=== PATIENT | male | born 2000 | race Caucasian/White ===

== ENCOUNTER 2018-07-22 00:32 | Inpatient (IN) ==
--- NOTE | 2018-07-22 01:09 | Emergency Department Note ---
Disposition Clinical Impression: Delusions Disposition: Admitted As Inpatient Condition: Good Referrals: Martha Turner MD [Primary Care Provider] - Forms: ED Satisfaction Letter General Adult HPI - General Chief complaint: ED Psychiatric Symptoms Stated complaint: psych eval Time Seen by Provider: 07/22/18 00:33 Source: patient, family Limitations: no limitations Nursing Notes Reviewed: Yes Vital Signs Reviewed: Yes - History of Present Illness HPI Narrative: 18 year old male presents to the ed per court order for pysch evaluation. Noemy is unaware of why he has been brought to the ED and is not SI/HI and is otherwise pleasant at bedside. PAtient is coopertaive and denies any history of pysch problems and otherise states his medical conditiosn include excercise i nduced asthma and ADHD. He is currently a college student at [employer] and is visiting his father in town. He states that the leveler helper picked him up and jairo him here for evlaution and is unaware as to why. After speaking with his father on the phone per permission of the paatient is appears that over the course of the past few months he has been expereincing incferased delusions of grandeur and "Thinks that he is GOD" and otherwise has special tee. Pain Scale: 0 - Related Data Previous Rx's Medication Instructions Recorded Albuterol Sulfate [Albuterol 1 puff IH Q4HR #1 hfa.aer.ad 01/29/16 Inhaler] Azithromycin [Zithromax] 250 mg PO DAILY #4 tablet 01/29/16 Allergies Allergy/AdvReac Type Severity Reaction Status Date / Time No Known Allergies Allergy Verified 01/29/16 20:13 Constitutional: Denies: fever, chills, weakness, weight change Eyes: Denies: eye pain, eye discharge, vision change ENT ED: Denies: ear pain, throat pain, dental pain, hearing loss, epistaxis, congestion, dysphagia Cardiovascular: Denies: chest pain, palpitations, dyspnea on exertion, edema, syncope Respiratory: Denies: cough, dyspnea, wheezes, hemoptysis, stridor Gastrointestinal: Denies: abdominal pain, nausea, vomiting, diarrhea, consti pation, hematemesis, melena, hematochezia Genitourinary: Denies: urgency, dysuria, frequency, hematuria Musculoskeletal: Denies: back pain, neck pain, arthralgia, myalgia Integumentary: Denies: rash, abrasion, lesions Neurological: Denies: headache, weakness, numbness, paresthesias, confusion, abnormal gait, vertigo Psychiatric: Denies: anxiety, depression, suicidal thoughts, homicidal thoughts, auditory hallucinations, visual hallucinations Endocrine: Denies: fatigue Hematological/Lymphatic: Denies: easy bleeding, easy bruising Allergic/Immunologic: Denies: facial swelling, urticaria Past Medical History - Past Medical History Medical history: Reports: asthma Psychiatric history: Reports: no psych history - Social History Smoking Status: Never smoker Smokeless Tobacco Status: No Alcohol use: Reports: none Drug use: Reports: none Physical Exam - General Limitations: no limitations General appearance: alert, in no apparent distress - Head Head exam: atraumatic, normocephalic, normal inspection - Eye Eye exam: Present: normal appearance, PERRL, EOMI - Expanded Eye Exam Pupils: Bilateral: reactive - ENT ENT exam: normal exam, normal oropharynx, mucous membranes moist - Expanded ENT Exam External ear exam: Present: normal external inspection Mouth exam: Present: normal external inspection Teeth exam: Present: normal inspection Throat exam: Present: normal inspection - Neck Neck exam: Present: normal inspection, full ROM, trachea midline - Chest Chest inspection: Present: normal inspection, symmetric chest wall rise - Respiratory Respiratory exam: Present: normal lung sounds bilaterally - Cardiovascular Cardiovascular exam: Present: regular rate, normal rhythm, normal heart sounds - Abdominal Exam Abdominal exam: Present: soft, Non-Tender. Absent: tenderness, distention, guarding, rebound, rigidity - Extremities Exam Extremities exam: Present: normal inspection, full ROM. Absent: tenderness, pedal edema - Expanded Upper Extremity Exam Shoulder exam: Present: normal inspection, full ROM Arm exam: Present: normal inspection, full ROM Elbow exam: Present: normal inspection, full ROM Forearm/Wrist exam: Present: normal inspection, full ROM Hand exam: Present: normal inspection, full ROM Vascular exam: Normal: capillary refill, radial pulse - Expanded Lower Extremity Exam Hip/Pelvis exam: Present: normal inspection, full ROM Upper leg exam: Present: normal inspection, full ROM Knee exam: Present: normal inspection, full ROM Lower leg exam: Present: normal inspection, full ROM Ankle exam: Present: normal inspection, full ROM Foot/toe exam: Present: normal inspection, full ROM Neurovascular/Tendon exam: Absent: motor deficit, sensory deficit, tendon deficit - Back Exam Back exam: Present: normal inspection, full ROM. Absent: tenderness - Neurological Exam Neurological exam: Present: alert, oriented X3 - Expanded Neurological Exam Patient oriented to: Present: person, place, time Speech: Present: fluid speech Cranial nerves: EOM function (II, III, IV, ): Normal, facial sensation (V): Normal, facial palsy (VII): Normal, gag reflex (IX): Normal, spinal accessory function (XI): Normal, tongue deviation (XII): Normal Cerebellar function: finger to nose: Normal Cerebellar function: normal gait Motor strength - LUE: 5/5 Motor strength - RUE: 5/5 Motor strength - LLE: 5/5 Motor strength - RLE: 5/5 Coma Scale Eye Opening: Spontaneous Coma Scale Motor Response: Obeys Commands Coma Scale Verbal Response: Oriented Coma Scale Total: 15 - Psychiatric Psychiatric exam: Present: normal affect, normal mood - Skin Skin exam: Present: warm, dry, intact, normal color Course Course Narrative: I will do a medical clearance and then consult 1A - Reevaluation(s) Reevaluation #1: medically cleared. 1A consulted Time: 02:25 - Consultations Consultation #1: 1A has decided to admit noemy to their facility. Time: 05:07 Vital Signs Temperature 97.9 F 07/22/18 00:58 Pulse Rate 56 07/22/18 00:58 Respiratory Rate 16 07/22/18 00:58 Blood Pressure 134/86 07/22/18 00:58 O2 Sat by Pulse Oximetry 97 07/22/18 00:58 Temperature 97.9 F 07/22/18 00:58 Pulse Rate 56 07/22/18 00:58 Respiratory Rate 16 07/22/18 00:58 Blood Pressure 134/86 07/22/18 00:58 O2 Sat by Pulse Oximetry 97 07/22/18 00:58 Oxygen Delivery Oxygen Delivery Room Air Medical Decision Making - Lab Data Result diagrams: 07/22/18 00:58 07/22/18 00:58 Lab Results 07/22/18 07/22/18 07/22/18 Range/Units 00:58 00:58 00:58 WBC 8.7 (4.3-11.1) K/mcL RBC 5.99 H (4.19-5.50) M/mcL Hgb 17.3 H (12.9-16.9) g/dL Hct 50.6 H (37.5-50.1) % MCV 84.5 (83.0-100.0) fL MCH 28.9 (28.0-33.3) pg MCHC 34.2 (31.6-35.5) g/dL RDW 13.2 (11.5-14.5) % Plt Count 180 (140-400) K/mcL MPV 12.4 (9.4-12.4) fL Immature Gran % 0.1 (0-4) % Seg Neutrophils % 58.5 % Lymphocytes % 33.2 % Monocytes % 6.8 % Eosinophils % 0.9 % Basophils % 0.5 % Neutrophils # 5.1 (1.6-8.9) K/mcL Lymphocytes # 2.9 (0.6-4.6) K/mcL Monocytes # 0.6 (0.0-1.3) K/mcL Eosinophils # 0.1 (0.0-0.6) K/mcL Basophils # 0.0 (0.0-0.2) K/mcL Sodium 142 (136-145) mEq/L Potassium 3.9 (3.5-5.1) mEq/L Chloride 106 (98-107) mEq/L Carbon Dioxide 25 (23-29) mEq/L BUN 9 (6-20) mg/dL Creatinine 0.70 (0.70-1.30) mg/dL Est GFR ( Amer) > 60 (> 60) Est GFR (Non-Af Amer) > 60 (> 60) BUN/Creatinine Ratio 13 (6-26) Glucose 89 (70-105) mg/dL Calculated Osmolality 292 (280-300) Calcium 9.6 (8.6-10.3) mg/dL TSH 0.993 (0.340-5.600) mcIU/mL Urine Color (Yellow) Urine Clarity (Clear) Urine pH (5.0-8.0) pH Units Ur Specific [place] (1.010-1.025) Urine Protein (Neg-Trace) mg/dL Urine Glucose (UA) (Normal) mg/dL Urine Ketones (Negative) mg/dL Urine Blood (Negative) Urine Nitrite (Negative) Urine Bilirubin (Negative) Urine Urobilinogen (Normal) mg/dL Ur Leukocyte Esterase (Negative) Urine Microscopic RBC (0-3) per hpf Urine Microscopic WBC (0-3) per hpf Ur Squamous Epith Cells (None-Few) per lpf Urine Bacteria (None-Few) per hpf Hyaline Casts (None-Few) per lpf Salicylates < 2.5 L (15.0-30.0) mg/dL Urine Opiates Screen (Fczgzm=214) ng/mL Acetaminophen < 10 L (10-20) mcg/mL Ur Barbiturates Screen (Yhlwhe=198) ng/mL Ur Phencyclidine Scrn (Cutoff=25) ng/mL Ur Amphetamines Screen (Iljceo=4104) ng/mL U Benzodiazepines Scrn (Wxclti=913) ng/mL Urine Cocaine Screen (Cutoff= 300) ng/mL U Marijuana (THC) Screen (Cutoff = 50) ng/mL Ur Drug Screen Interp Ethyl Alcohol < 10 (Less than 10) mg/dL 07/22/18 07/22/18 Range/Units 01:42 01:42 WBC (4.3-11.1) K/mcL RBC (4.19-5.50) M/mcL Hgb (12.9-16.9) g/dL Hct (37.5-50.1) % MCV (83.0-100.0) fL MCH (28.0-33.3) pg MCHC (31.6-35.5) g/dL RDW (11.5-14.5) % Plt Count (140-400) K/mcL MPV (9.4-12.4) fL Immature Gran % (0-4) % Seg Neutrophils % % Lymphocytes % % Monocytes % % Eosinophils % % Basophils % % Neutrophils # (1.6-8.9) K/mcL Lymphocytes # (0.6-4.6) K/mcL Monocytes # (0.0-1.3) K/mcL Eosinophils # (0.0-0.6) K/mcL Basophils # (0.0-0.2) K/mcL Sodium (136-145) mEq/L Potassium (3.5-5.1) mEq/L Chloride (98-107) mEq/L Carbon Dioxide (23-29) mEq/L BUN (6-20) mg/dL Creatinine (0.70-1.30) mg/dL Est GFR ( Amer) (> 60) Est GFR (Non-Af Amer) (> 60) BUN/Creatinine Ratio (6-26) Glucose (70-105) mg/dL Calculated Osmolality (280-300) Calcium (8.6-10.3) mg/dL TSH (0.340-5.600) mcIU/mL Urine Color Yellow (Yellow) Urine Clarity Clear (Clear) Urine pH 6.0 (5.0-8.0) pH Units Ur Specific [place] 1.026 H (1.010-1.025) Urine Protein 30 H (Neg-Trace) mg/dL Urine Glucose (UA) Normal (Normal) mg/dL Urine Ketones Trace H (Negative) mg/dL Urine Blood Negative (Negative) Urine Nitrite Negative (Negative) Urine Bilirubin Negative (Negative) Urine Urobilinogen Normal (Normal) mg/dL Ur Leukocyte Esterase Negative (Negative) Urine Microscopic RBC 5-15 H (0-3) per hpf Urine Microscopic WBC 0-3 (0-3) per hpf Ur Squamous Epith Cells Few (None-Few) per lpf Urine Bacteria None Seen (None-Few) per hpf Hyaline Casts None Seen (None-Few) per lpf Salicylates (15.0-30.0) mg/dL Urine Opiates Screen Negative (Lgekce=501) ng/mL Acetaminophen (10-20) mcg/mL Ur Barbiturates Screen Negative (Bjxpla=695) ng/mL Ur Phencyclidine Scrn Negative (Cutoff=25) ng/mL Ur Amphetamines Screen Negative (Hkhajb=8833) ng/mL U Benzodiazepines Scrn Negative (Cqilmj=728) ng/mL Urine Cocaine Screen Negative (Cutoff= 300) ng/mL U Marijuana (THC) Screen Positive H (Cutoff = 50) ng/mL Ur Drug Screen Interp See Below Ethyl Alcohol (Less than 10) mg/dL
[2018-07-22 01:43] LABS: Basophils % 0.5 %; Eosinophils # 0.1 K/mcL (0.0-0.6); Eosinophils % 0.9 %; Hematocrit 50.6 % (37.5-50.1); Hemoglobin 17.3 g/dL (12.9-16.9); Immature Granulocytes % 0.1 % (0-4); Lymphocytes # 2.9 K/mcL (0.6-4.6); Lymphocytes % 33.2 %; Mean Corpuscular HGB Conc 34.2 g/dL (31.6-35.5); Mean Corpuscular Hemoglobin 28.9 pg (28.0-33.3); Mean Corpuscular Volume 84.5 fL (83.0-100.0); Mean Platelet Volume 12.4 fL (9.4-12.4); Monocytes # 0.6 K/mcL (0.0-1.3); Monocytes % 6.8 %; Neutrophils # 5.1 K/mcL (1.6-8.9); Platelet Count 180 K/mcL (140-400); Red Blood Count 5.99 M/mcL (4.19-5.50); Red Cell Distribution Width 13.2 % (11.5-14.5); Segmented Neutrophils % 58.5 %
[2018-07-22 02:03] LABS: Acetaminophen < 10 mcg/mL (10-20); BUN/Creatinine Ratio 13 (6-26); Blood Urea Nitrogen 9 mg/dL (6-20); Calcium 9.6 mg/dL (8.6-10.3); Carbon Dioxide 25 mEq/L (23-29); Chloride 106 mEq/L (98-107); Ethanol < 10 mg/dL (Less than 10); Glucose 89 mg/dL (70-105); Osmolality,Calculated 292 (280-300); Potassium 3.9 mEq/L (3.5-5.1); Salicylate < 2.5 mg/dL (15.0-30.0); Sodium 142 mEq/L (136-145); eGFR For Non-African Americans > 60 (> 60)
[2018-07-22 02:21] LABS: Bilirubin,Urine Negative (Negative); Blood,Urine Negative (Negative); Clarity,Urine Clear (Clear); Color,Urine Yellow (Yellow); Glucose,Urine (UA) Normal (Normal); Ketones,Urine Trace mg/dL (Negative); Leukocyte Esterase,Urine Negative (Negative); Nitrite,Urine Negative (Negative); Protein,Urine 30 mg/dL (Neg-Trace); Specific Gravity,Urine 1.026 (1.010-1.025); Urobilinogen,Urine Normal (Normal)
[2018-07-22 02:22] LABS: Bacteria,Urine None Seen per hpf (None-Few); Hyaline Casts,Urine None Seen per lpf (None-Few); Squamous Epithelial Cell,Urine Few per lpf (None-Few); WBC,Urine 0-3 per hpf (0-3)
[2018-07-22 02:34] LABS: Amphetamine Screen,Urine Negative ng/mL (Cutoff=1000); Barbiturate Screen,Urine Negative ng/mL (Cutoff=200); Benzodiazepines Screen,Urine Negative ng/mL (Cutoff=200); Cannabinoid Screen,Urine Positive ng/mL (Cutoff = 50); Cocaine Screen,Urine Negative ng/mL (Cutoff= 300); Opiate Screen,Urine Negative ng/mL (Cutoff=300); Phencyclidine Screen,Urine Negative ng/mL (Cutoff=25)
[2018-07-22] MEDS ORDERED: *HR* LORazepam 1 MG TABLET PO PRN (05:17)
[2018-07-22] MEDS ORDERED: Mag Hydrox/Al Hydrox/Simeth 30 ML UDC PO PRN (05:17)
[2018-07-22] MEDS ORDERED: Haloperidol Lactate 5 MG/ML VIAL IM PRN (05:17)
[2018-07-22] MEDS ORDERED: *HR* LORazepam 2 MG/ML VIAL IM PRN (05:17)
[2018-07-22] MEDS ORDERED: Ibuprofen 400 MG TABLET PO PRN (05:17)
--- NOTE | 2018-07-22 10:30 | Psychiatry History & Physical ---
Date of Encounter: 07/22/18 Time of Encounter: 10:28 History of Present Illness Patient Stated Chief Complaint: sedated Medicare Admission Attestation: For traditional Medicare patients the provided hospital inpatient services are reasonable and necessary and in the case of services not specified as inpatient-only under 42 CFR 419.22 (n), that they are appropriately provided as inpatient services in accordance 42 CFR 412.3. For Critical Access Hospital the patient may reasonably be expected to be discharged or transferred to a hospital within 96 hours after admission to the Critical Access Hospital. Admitted From: Emergency Dept Plans for Post Hospital Care: Home History of Present Illness: 18 year old male presented to the ed per court order for pysch evaluation. Fam is unaware of why he has been brought to the ED and is not SI/HI and is otherwise pleasant at bedside. Patient is cooperative and denies any history of pysch problems and otherwise states his medical condition include exercise induced asthma and ADHD. He is currently a college student at [employer] and is visiting his father in town. He states that the heel washer stringing machine operator picked him up and borough him here for evaluation and is unaware as to why. After speaking with his father on the phone per permission of the patient is appears that over the course of the past few months he has been experiencing increased delusions of grandeur and "Thinks that he is GOD" and otherwise has special tee. He was very agitated when he was brought to the unit and required emergency medications. He was noted to have bizarre behaviors. He believed he had a Red sunglasses that he bought at [facility] that allowed him to tell the truth from lies. He also said that he saw a white light on the highway which told him that he is God. 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 He has been failing out of [employer]. Past Med Surg Social Fam HX - Past Medical History Medical history: asthma - Past Psychiatric History Past psychiatric history details: None per records. Unable to obtain from patient due to his sedation. There is no family contact information on record. Family psychiatric history: Unknown Family History of Suicide: Unknown - Past Surgical History Surgical History: tonsillectomy - Social History Smoking Status: Never smoker Smokeless Tobacco Status: No Alcohol use: none Drug use: none Occupational status: employed Current living situation: Home - Independent Activity Level: Independent ambulation Recent Out of Country Travel Within the Last 8 Weeks: No Exposure or Possible Exposure to Illness During Travel: No Additional social history: Unable to obtain due to his sedation. We know he had been working at 4:00 or and was a student at [employer]. Medications & Allergies No Known Home Drugs 07/22/18 [History] Allergy/AdvReac Type Severity Reaction Status Date / Time DECONGESTANTS Allergy See Uncoded 07/22/18 09:24 Comments Review of Systems ROS unobtainable: due to patient condition Psychiatric: Reports: auditory hallucinations, visual hallucinations, other (Psychosis) Exam - HEENT Head exam IM: Present: atraumatic Eye exam IM: Present: normal appearance ENT exam IM: Present: mucous membranes moist - Neurological Neurological exam: Present: CN II-XII intact (Grossly though exam is limited due to his sedation) - Respiratory Respiratory exam IM: Absent: respiratory distress - GI/Abdominal GI/Abdominal exam IM: Present: no peritoneal signs - Extremities Extremities exam IM: Absent: joint swelling - Skin Skin exam IM: Absent: cyanosis - Constitutional Vitals: Temp Pulse Resp BP Pulse Ox 97.9 F 56 16 134/86 97 07/22/18 00:58 07/22/18 00:58 07/22/18 00:58 07/22/18 00:58 07/22/18 00:58 General appearance: disheveled - Musculoskeletal Gait: other (In bed) Station: relaxed Strength & Tone: other (Unable to answer) - Psychiatric Patient Orientation: Yes Other (Unable to answer) Level of alertness: Sedated Behavior: uncooperative Psychomotor activity: Slowed Eye Contact: No Eye Contact Mood Description: Other Patient description of mood: No answer Affect description: other (Sedated) Speech Volume: No speech Speech pattern: other (Sedated) Language & Vocabulary: other (Sedated no language and vocabulary to observe) Thought Process: Loose Associations (Currently sedated however based on ER record was having loose associations and disorganization), Disorganized Thought Content: Yes Sabianist delusion, Yes Grandiose delusion Perceptual Disturbances: Yes Auditory hallucinations, Yes Visual hallucinations Attention Span Ability: Unable to Focus, Unable to Sustain Attention Memory Description: Immediate Impaired, Remote Intact, Remote Impaired Patient Reliability: Not Reliable Historian Fund of knowledge: Yes average Intelligence Estimate: Average Judgment: Poor Insight: None Results - Drug Levels and Toxicology Drug Levels and Toxicology: Drug Levels and Toxicity 07/22/18 07/22/18 00:58 01:42 Urine Opiates Screen Negative Acetaminophen < 10 L Ur Barbiturates Screen Negative Ur Phencyclidine Scrn Negative Ur Amphetamines Screen Negative U Benzodiazepines Scrn Negative Urine Cocaine Screen Negative U Marijuana (THC) Screen Positive H Ethyl Alcohol < 10 - Labs Labs: Laboratory Last Values WBC 8.7 K/mcL (4.3-11.1) 07/22/18 00:58 RBC 5.99 M/mcL (4.19-5.50) H 07/22/18 00:58 Hgb 17.3 g/dL (12.9-16.9) H 07/22/18 00:58 Hct 50.6 % (37.5-50.1) H 07/22/18 00:58 MCV 84.5 fL (83.0-100.0) 07/22/18 00:58 MCH 28.9 pg (28.0-33.3) 07/22/18 00:58 MCHC 34.2 g/dL (31.6-35.5) 07/22/18 00:58 RDW 13.2 % (11.5-14.5) 07/22/18 00:58 Plt Count 180 K/mcL (140-400) 07/22/18 00:58 MPV 12.4 fL (9.4-12.4) 07/22/18 00:58 Immature Gran % 0.1 % (0-4) 07/22/18 00:58 Seg Neutrophils % 58.5 % 07/22/18 00:58 33.2 % 07/22/18 00:58 6.8 % 07/22/18 00:58 0.9 % 07/22/18 00:58 0.5 % 07/22/18 00:58 5.1 K/mcL (1.6-8.9) 07/22/18 00:58 2.9 K/mcL (0.6-4.6) 07/22/18 00:58 0.6 K/mcL (0.0-1.3) 07/22/18 00:58 0.1 K/mcL (0.0-0.6) 07/22/18 00:58 0.0 K/mcL (0.0-0.2) 07/22/18 00:58 Sodium 142 mEq/L (136-145) 07/22/18 00:58 Potassium 3.9 mEq/L (3.5-5.1) 07/22/18 00:58 Chloride 106 mEq/L (98-107) 07/22/18 00:58 Carbon Dioxide 25 mEq/L (23-29) 07/22/18 00:58 BUN 9 mg/dL (6-20) 07/22/18 00:58 0.70 mg/dL (0.70-1.30) 07/22/18 00:58 Est GFR ( Amer) > 60 (> 60) 07/22/18 00:58 Est GFR (Non-Af Amer) > 60 (> 60) 07/22/18 00:58 13 (6-26) 07/22/18 00:58 Glucose 89 mg/dL (70-105) 07/22/18 00:58 292 (280-300) 07/22/18 00:58 Calcium 9.6 mg/dL (8.6-10.3) 07/22/18 00:58 TSH 0.993 mcIU/mL (0.340-5.600) 07/22/18 00:58 Yellow (Yellow) 07/22/18 01:42 Clear (Clear) 07/22/18 01:42 6.0 pH Units (5.0-8.0) 07/22/18 01:42 Ur Specific [place] 1.026 (1.010-1.025) H 07/22/18 01:42 30 mg/dL (Neg-Trace) H 07/22/18 01:42 Normal mg/dL (Normal) 07/22/18 01:42 Trace mg/dL (Negative) H 07/22/18 01:42 Negative (Negative) 07/22/18 01:42 Negative (Negative) 07/22/18 01:42 Negative (Negative) 07/22/18 01:42 Normal mg/dL (Normal) 07/22/18 01:42 Ur Leukocyte Esterase Negative (Negative) 07/22/18 01:42 5-15 per hpf (0-3) H 07/22/18 01:42 0-3 per hpf (0-3) 07/22/18 01:42 Ur Squamous Epith Cells Few per lpf (None-Few) 07/22/18 01:42 None Seen per hpf (None-Few) 07/22/18 01:42 Hyaline Casts None Seen per lpf (None-Few) 07/22/18 01:42 Salicylates < 2.5 mg/dL (15.0-30.0) L 07/22/18 00:58 Negative ng/mL (Ewnbyp=948) 07/22/18 01:42 Acetaminophen < 10 mcg/mL (10-20) L 07/22/18 00:58 Ur Barbiturates Screen Negative ng/mL (Ksifya=535) 07/22/18 01:42 Ur Phencyclidine Scrn Negative ng/mL (Cutoff=25) 07/22/18 01:42 Ur Amphetamines Screen Negative ng/mL (Xodrzr=8880) 07/22/18 01:42 U Benzodiazepines Scrn Negative ng/mL (Legkbg=188) 07/22/18 01:42 Negative ng/mL (Cutoff= 300) 07/22/18 01:42 U Marijuana (THC) Screen Positive ng/mL (Cutoff = 50) H 07/22/18 01:42 Ur Drug Screen Interp See Below 07/22/18 01:42 Ethyl Alcohol < 10 mg/dL (Less than 10) 07/22/18 00:58 - Impressions Impressions Head CT 07/22/18 00:45 IMPRESSION: No acute intracranial abnormality. D/ / Neel Vasquez / Neel Vasquez Interpreting Provider: Neel Vasquez Assessment and Plan (1) Unspecified psychosis Current visit: Yes Status: Acute Plan: Admit inpatient for safety and stabilization, Close observation, Suicide P recautions per unit protocol, Encourage participation in unit milieu, Group Therapy, Monitor sleep, Monitor appetite Additional Plan: This could be a first break psychotic episode. Could also be related to some drugs which do not show in his toxicology screen. Will start him on Risperdal for his psychosis. Start 1 mg twice a day. Encourage group attendance. Reviewed Interval hx Review any current labs Pt had an opportunity to ask questions and discuss current treatment plan. Supportive therapy was provided Pt encouraged to consider group or individual therapy Pt was in agreement with treatment plan. Pt was educated on the risks benefits and side effects of current medications and alternatives as well as the risks and benefits of no medication. AIMS = 0 lipids and hgba1c Risks, benefits, side effects, alternatives discussed w/pt: Yes Patient agreeable to treatment: Yes Plans for Post Hospital Care: Home Estimated Length of Stay (Days): 6 Qualifiers: Psychosis type: unspecified psychosis type Qualified Code(s): F29 - Unspecified psychosis not due to a substance or known physiological condition
[2018-07-22] MEDS: hydrOXYzine pamoate 25 MG CAPSULE PO PRN (21:40)
[2018-07-22] MEDS: traZODone 50 MG TABLET PO PRN (21:40)
[2018-07-22] MEDS: RisperiDONE-M 1 MG TAB.RAPDIS PO SCH (21:41)
[2018-07-23] MEDS: hydrOXYzine pamoate 25 MG CAPSULE PO PRN ×2 (06:30→21:29)
[2018-07-23] MEDS: RisperiDONE-M 1 MG TAB.RAPDIS PO SCH ×2 (08:26→21:30)
--- NOTE | 2018-07-23 10:50 | Psychiatry Progress Note ---
Date of Encounter: 07/23/18 Time of Encounter: 10:48 Subjective Interval history: Colors seem more sharp. He did not believe that they could let him see a transfer from [place]. He denies hearing voices or seeing things but does talk about sometimes things catching his I and making him want to spend more time looking at them. He reports that he had used some cannabis recently. Told nursing he is missing a trip to [place] to buy real estate. Review of Systems Psychiatric: Reports: other (Psychosis) Results - Vital Signs Vital Signs: Temp Pulse Resp BP Pulse Ox 97.9 F 124 18 116/84 96 07/23/18 09:00 07/23/18 09:00 07/23/18 09:00 07/23/18 09:00 07/23/18 09:00 - Impressions ITS Impressions Head CT 07/22/18 00:45 IMPRESSION: No acute intracranial abnormality. D/ / Neel Vasquez / Neel Vasquez Interpreting Provider: Neel Vasquez Assessment and Plan (1) Unspecified psychosis Current visit: Yes Status: Acute Plan: Continue hospitalization, Close observation, Suicide Precautions per unit protocol, Encourage participation in unit milieu, Group Therapy, Monitor sleep, Monitor appetite Additional Plan: Continue Risperdal. Encourage group attendance. Therapists working on discharge planning. Risks, benefits, side effects, alternatives discussed w/pt: Yes Patient agreeable to treatment: Yes Qualifiers: Psychosis type: unspecified psychosis type Qualified Code(s): F29 - Unspecified psychosis not due to a substance or known physiological condition Consult Discharge Plan - Plan Referrals: NONE,PCP [Primary Care Provider] - Psychiatry Exam - Constitutional Vitals: Temp Pulse Resp BP Pulse Ox 97.9 F 124 18 116/84 96 07/23/18 09:00 07/23/18 09:00 07/23/18 09:00 07/23/18 09:00 07/23/18 09:00 General appearance: age & developmentally appropriate, well-groomed, well- nourished - Musculoskeletal Gait: normal Station: relaxed Strength & Tone: normal for patient - Psychiatric Patient Orientation: Yes Person, Yes Time, Yes Place Level of alertness: Alert Behavior: calm, cooperative Psychomotor activity: Normal Eye Contact: Maintains Eye Contact Mood Description: Euthymic/stable Patient description of mood: ok Affect description: congruent with mood, full range Speech Volume: Normal Speech pattern: normal rate, normal rhythm, normal tone, fluent, spontaneous Language & Vocabulary: consistent with education Thought Process: Linear, Goal Oriented Thought Content: No Suicidal ideation, No Homicidal ideation, No Overt delusions, Yes Preoccupation, Yes Grandiose delusion Perceptual Disturbances: No Auditory hallucinations, No Visual hallucinations Attention Span Ability: Capable of Focused Attention Memory Description: Grossly Intact Patient Reliability: Reliable Historian Fund of knowledge: Yes abstraction ability, Yes aware of current events Intelligence Estimate: Average Judgment: Limited Insight: Minimal
[2018-07-23 15:24] LABS: Thyroid Stimulating Hormone 1.009 mcIU/mL (0.340-5.600)
[2018-07-23 15:29] LABS: Estimated Average Glucose 94 mg/dl; Hemoglobin A1C 4.9 %
[2018-07-23] MEDS: traZODone 50 MG TABLET PO PRN (21:30)
[2018-07-24] MEDS: traZODone 50 MG TABLET PO PRN (02:54)
--- NOTE | 2018-07-24 06:54 | Discharge Summary ---
Date of Encounter: 07/24/18 Time of Encounter: 06:52 Diagnosis - Discharge Diagnosis (1) Unspecified psychosis Status: Acute Qualifiers: Psychosis type: brief psychotic disorder Qualified Code(s): F23 - Brief psychotic disorder Medications - Discharge Medications Prescriptions: hydrOXYzine pamoate [HydrOXYzine Pamoate] 25 mg PO TID PRN #60 capsule PRN Reason: Anxiety RisperiDONE-M [RisperDAL M-TAB] 1 mg PO BID #60 tab.rapdis traZODone [TraZODone] 50 mg PO HS PRN #30 tablet PRN Reason: Insomnia RisperiDONE-M [RisperDAL M-TAB] 1 mg PO BID #60 tab.rapdis 07/24/18 [Rx] hydrOXYzine pamoate [HydrOXYzine Pamoate] 25 mg PO TID PRN #60 capsule 07/24/18 [Rx] traZODone [TraZODone] 50 mg PO HS PRN #30 tablet 07/24/18 [Rx] Allergy/AdvReac Type Severity Reaction Status Date / Time [facility]GE[facility] Allergy See Uncoded 07/22/18 09:24 Comments Results Procedures and tests throughout hospitalization: Completed Lab Orders Category Date Time Status Acetaminophen Stat Lab 07/22/18 00:58 Completed Basic Metabolic Panel Stat Lab 07/22/18 00:58 Completed Complete Blood Count [HEME] Stat Lab 07/22/18 00:58 Completed Drug Screen, Urine [UCHEM] Stat Lab 07/22/18 01:42 Completed Ethanol Stat Lab 07/22/18 00:58 Completed Hgb A1C Routine Lab 07/23/18 13:35 Completed Lipid Panel Routine Lab 07/23/18 13:35 Completed Salicylate Stat Lab 07/22/18 00:58 Completed TSH [Thyroid Stimulating Hormone] Stat Lab 07/22/18 00:58 Completed Thyroid Stimulating Hormone Routine Lab 07/23/18 13:35 Completed Treponema Pallidum Ab Routine Lab 07/23/18 13:35 Completed Urinalysis reflex Microscopic [URIN] Stat Lab 07/22/18 01:42 Completed Completed Imaging Orders Category Date Time Status CT head/brain wo con [CT] Stat Cat Scan 07/22/18 00:45 Completed Laboratory Results - last 72 hr 07/22/18 07/22/18 07/22/18 00:58 00:58 00:58 WBC 8.7 RBC 5.99 H Hgb 17.3 H Hct 50.6 H MCV 84.5 MCH 28.9 MCHC 34.2 RDW 13.2 Plt Count 180 MPV 12.4 Immature Gran % 0.1 Seg Neutrophils % 58.5 Lymphocytes % 33.2 Monocytes % 6.8 Eosinophils % 0.9 Basophils % 0.5 Neutrophils # 5.1 Lymphocytes # 2.9 Monocytes # 0.6 Eosinophils # 0.1 Basophils # 0.0 Sodium 142 Potassium 3.9 Chloride 106 Carbon Dioxide 25 BUN 9 Creatinine 0.70 Est GFR ( Amer) > 60 Est GFR (Non-Af Amer) > 60 BUN/Creatinine Ratio 13 Glucose 89 Est Mean Plasma Glucose Hemoglobin A1c Calculated Osmolality 292 Calcium 9.6 Triglycerides Cholesterol LDL Cholesterol, Calc VLDL Cholesterol, Calc HDL Cholesterol Cholesterol/HDL Ratio TSH 0.993 Urine Color Urine Clarity Urine pH Ur Specific [place] Urine Protein Urine Glucose (UA) Urine Ketones Urine Blood Urine Nitrite Urine Bilirubin Urine Urobilinogen Ur Leukocyte Esterase Urine Microscopic RBC Urine Microscopic WBC Ur Squamous Epith Cells Urine Bacteria Hyaline Casts Salicylates < 2.5 L Urine Opiates Screen Acetaminophen < 10 L Ur Barbiturates Screen Ur Phencyclidine Scrn Ur Amphetamines Screen U Benzodiazepines Scrn Urine Cocaine Screen U Marijuana (THC) Screen Ur Drug Screen Interp Ethyl Alcohol < 10 T.pallidum Ab Interpret 07/22/18 07/22/18 07/23/18 01:42 01:42 13:35 WBC RBC Hgb Hct MCV MCH MCHC RDW Plt Count MPV Immature Gran % Seg Neutrophils % Lymphocytes % Monocytes % Eosinophils % Basophils % Neutrophils # Lymphocytes # Monocytes # Eosinophils # Basophils # Sodium Potassium Chloride Carbon Dioxide BUN Creatinine Est GFR ( Amer) Est GFR (Non-Af Amer) BUN/Creatinine Ratio Glucose Est Mean Plasma Glucose 94 Hemoglobin A1c 4.9 Calculated Osmolality Calcium Triglycerides Cholesterol LDL Cholesterol, Calc VLDL Cholesterol, Calc HDL Cholesterol Cholesterol/HDL Ratio TSH Urine Color Yellow Urine Clarity Clear Urine pH 6.0 Ur Specific [place] 1.026 H Urine Protein 30 H Urine Glucose (UA) Normal Urine Ketones Trace H Urine Blood Negative Urine Nitrite Negative Urine Bilirubin Negative Urine Urobilinogen Normal Ur Leukocyte Esterase Negative Urine Microscopic RBC 5-15 H Urine Microscopic WBC 0-3 Ur Squamous Epith Cells Few Urine Bacteria None Seen Hyaline Casts None Seen Salicylates Urine Opiates Screen Negative Acetaminophen Ur Barbiturates Screen Negative Ur Phencyclidine Scrn Negative Ur Amphetamines Screen Negative U Benzodiazepines Scrn Negative Urine Cocaine Screen Negative U Marijuana (THC) Screen Positive H Ur Drug Screen Interp See Below Ethyl Alcohol T.pallidum Ab Interpret 07/23/18 07/23/18 13:35 13:35 WBC RBC Hgb Hct MCV MCH MCHC RDW Plt Count MPV Immature Gran % Seg Neutrophils % Lymphocytes % Monocytes % Eosinophils % Basophils % Neutrophils # Lymphocytes # Monocytes # Eosinophils # Basophils # Sodium Potassium Chloride Carbon Dioxide BUN Creatinine Est GFR ( Amer) Est GFR (Non-Af Amer) BUN/Creatinine Ratio Glucose Est Mean Plasma Glucose Hemoglobin A1c Calculated Osmolality Calcium Triglycerides 106 Cholesterol 101 LDL Cholesterol, Calc 46 VLDL Cholesterol, Calc 21 HDL Cholesterol 34 L Cholesterol/HDL Ratio 3.0 TSH 1.009 Urine Color Urine Clarity Urine pH Ur Specific [place] Urine Protein Urine Glucose (UA) Urine Ketones Urine Blood Urine Nitrite Urine Bilirubin Urine Urobilinogen Ur Leukocyte Esterase Urine Microscopic RBC Urine Microscopic WBC Ur Squamous Epith Cells Urine Bacteria Hyaline Casts Salicylates Urine Opiates Screen Acetaminophen Ur Barbiturates Screen Ur Phencyclidine Scrn Ur Amphetamines Screen U Benzodiazepines Scrn Urine Cocaine Screen U Marijuana (THC) Screen Ur Drug Screen Interp Ethyl Alcohol T.pallidum Ab Interpret Negative Provider Date of admission: 07/22/18 05:13 Primary care physician: PCP NONE Discharging clinician: Cathleen Julien Psychiatry Exam - Constitutional Vitals: Temp Pulse Resp BP Pulse Ox 98.2 F 90 18 122/67 95 07/23/18 21:00 07/23/18 21:00 07/23/18 21:00 07/23/18 21:00 07/23/18 21:00 General appearance: age & developmentally appropriate, well-groomed, well- nourished - Musculoskeletal Gait: normal Station: relaxed Strength & Tone: normal for patient - Psychiatric Patient Orientation: Yes Person, Yes Time, Yes Place Level of alertness: Alert Behavior: calm, cooperative Psychomotor activity: Normal Eye Contact: Maintains Eye Contact Mood Description: Euthymic/stable Patient description of mood: Good Affect description: congruent with mood, full range Speech Volume: Normal Speech pattern: normal rate, normal rhythm, normal tone, fluent, spontaneous Language & Vocabulary: consistent with education Thought Process: Linear, Goal Oriented Thought Content: No Suicidal ideation, No Homicidal ideation, No Overt delusions Perceptual Disturbances: No Auditory hallucinations, No Visual hallucinations Attention Span Ability: Capable of Focused Attention Memory Description: Grossly Intact Patient Reliability: Reliable Historian Fund of knowledge: Yes abstraction ability, Yes aware of current events Intelligence Estimate: Average Judgment: Good Insight: Full Hospital Course Hospital course: Mr. Bryson is a 18 year old male who was admitted for psychosis. It is unclear at this time if this was substance related or a first break. He did respond to medications. His pink slip on July 24 and he did not meet probate criteria and as such was released.Patient was educated of diagnosis and the risk-benefit side effects of this alternative treatment options and was monitored for responsiveness and side effects. Mood anxiety sleep and appetite interest improved as did future orientation. Self-harm thoughts were not present, thinking cleared, psychosis resolved, and mood stabilized. Patient was able to attend both individual and group therapy sessions as well as meet with the psychiatrist daily and urged to discuss any medication or treatment issues or other concerns. The patient was educated primarily by verbal means about their diagnosis and manifestations in their life. The option for treatment including group and individual therapy programming was offered to the patient in addition to the use of medications with all their potential risks, benefits, and side effects as well as the risks of not taking medication and non-adh ereance were discussed with the patient at length. The patient was given the opportunity to ask questions and was noted to participate in the treatment in the planning process. The patient felt ready and eager to be discharged from the inpatient psychiatric unit to continue on with treatment as an outpatient. The patient agreed that is they were safe for this disposition. The patient was considered to be able to participate in informed consent and decision making with respect to medical, legal, and financial issues of the time of discharge. At the time of discharge the patient adamantly denied any concerns for lethality including suicidal or homicidal thoughts ideations or plans and was future oriented toward ongoing mental health care, medical follow-up and sobriety. Time spent discussing smoking cessation with patient: 3 to 10 minutes Does patient wish to continue nicotine replacement upon disc: No - Time Spent with Patient Total time spent providing and/or coordinating discharge services: 25 Less than 30 minutes Specific discharge activities: Interval history reviewed. Available labs reviewed . Psychotherapy provided. Patient had an opportunity to ask questions and address concerns. Patient was in agreement with the treatment plan. The risks benefits and side effects of medications were discussed with the patient, including alternatives and treatment. The patient was educated on the abstaining from any alcohol or illicit substances, following up with all scheduled a ppointments, and taking all medications as prescribed. The patient was educated on 90 meetings in 90 days and to find a sponsor. Assessment and Plan - Patient/Caregiver Discharge Instructions Activity: resume usual activities as tolerated Diet: regular diet Additional Instructions: Continue current medications. Follow up with outpatient mental health. Encourage continued therapy in a group or individual setting. The patient was discharged to home. - Follow up Plan Follow up with: NONE,PCP [Primary Care Provider] - Functional capacity at discharge: independent ambulation Overall status at discharge: Stable Disposition: Home, Self-Care Quality - Multiple Antipsychotics Patient discharged on 2 or more antipsychotic medications: No Procedures - Procedures Procedures: Medication Management, Crisis Stabilization, Supportive Therapy, Group Therapy, Psychoeducational Therapy
[2018-07-24] MEDS: RisperiDONE-M 1 MG TAB.RAPDIS PO SCH (08:52)
[2018-07-24 11:18] VITALS: BP 116/68
== END 2018-07-24 10:50 | disposition home or self-care (01) | DRG 885 ==
LOC: EMEROOARM 00:32 → 1ANU 05:13
PROVIDERS: ADMIT Psychiatry & Neurology Psychiatry; ATTEND Psychiatry & Neurology Psychiatry